=== PATIENT | female | born 1980 | race Caucasian/White ===

== ENCOUNTER 2023-09-07 18:06 | Emergency (ER) | payer OTHER ==
[~2023-09-07] VITALS: Ht 149.9 cm; Wt 58.1 kg
[2023-09-07 18:51] LABS: *BILIRUBIN,URIN NEGATIVE (NEGATIVE); *CLARITY,URINE CLEAR (CLEAR); *COLOR,URINE YELLOW (YELLOW); *KETONES,URINE NEGATIVE (NEGATIVE); *PROTEIN,URINE NEGATIVE (NEGATIVE); *UROBILINOGEN,URINE 0.2 E.U./dl (NORMAL); LEUKOCYTE ESTERASE ,URINE NEGATIVE (NEGATIVE); UGLUCOSE NEGATIVE (NEGATIVE)
[2023-09-07 18:52] LABS: *BLOOD, URINE NEGATIVE (NEGATIVE); NITRITE, URINE NEGATIVE (NEGATIVE)
[2023-09-07 18:55] LABS: *URINE HCG, QUAL NEGATIVE (NEGATIVE)
[2023-09-07 19:44] LABS: ALBUMIN 3.7 g/dL (3.4-5.0); BILIRUBIN,DIRECT 0.1 mg/dL (0.0-0.2); BILIRUBIN,TOTAL 0.1 mg/dL (0.2-1.0); CALCIUM 8.8 mg/dL (8.5-10.1); CREATININE 0.6 mg/dL (0.6-1.3)
[2023-09-07 19:46] LABS: BASOPHILS % (AUTO) 0.5 % (0.0-2.0); EOSINOPHILS # (AUTO) 0.1 K/uL (0.0-0.7); EOSINOPHILS % (AUTO) 2.4 % (0.0-7.0); HEMATOCRIT 40.1 % (31.2-41.9); HEMOGLOBIN 13.5 g/dL (10.9-14.3); LYMPHOCYTES # (AUTO) 2.1 K/uL (0.8-4.8); LYMPHOCYTES % (AUTO) 35.7 % (20.5-51.5); MEAN CORPUSCULAR HEMOGLOBIN 28.7 uug (24.7-32.8); MEAN CORPUSCULAR HGB CONC 34 g/dL (32.3-35.6); MEAN CORPUSCULAR VOLUME 85.1 fL (75.5-95.3); MONOCYTES # (AUTO) 0.4 K/uL (0.1-1.30); MONOCYTES % (AUTO) 6.1 % (0.0-11.0); NEUTROPHILS # (AUTO) 3.2 K/uL (1.8-8.9); NEUTROPHILS % (AUTO) 55.3 % (38.5-71.5); PLATELET COUNT (AUTO) 152 K/uL (179-408); RED BLOOD CELL COUNT(AUTO) 4.71 MIL/uL (3.63-4.92); RED CELL DISTRIBUTION WIDTH 13.2 % (12.3-17.7); WHITE BLOOD COUNT (AUTO) 5.8 K/uL (3.8-11.8)
[2023-09-07 19:48] LABS: DIFFERENTIAL COMMENT 1
[2023-09-07] MEDS ORDERED: LANS30CA54 PO (20:32)
[2023-09-07] MEDS ORDERED: MAG30ORA GT (20:32)
[2023-09-07 20:49] VITALS: BP 101/62; O2SAT 97
== END 2023-09-07 20:49 | disposition home or self-care (01) ==
LOC: ER 18:10
DX: R10.10 Upper abdominal pain, unspecified (principal); R07.89 Other chest pain; F17.210 Nicotine dependence, cigarettes, uncomplicated; Z79.899 Other long term (current) drug therapy
CPT/HCPCS: 36415; 71045; 76856; 83690; 84703; 85025; 93005; A4606; A4663

== ENCOUNTER 2024-05-13 15:50 | Emergency (ER) | payer OTHER ==
[~2024-05-13] VITALS: Ht 149.9 cm; Wt 56.7 kg
[~2024-05-13 15:50] MED LIST: MAG30ORA GT
[2024-05-13] MEDS ORDERED: FAMO40TA7 PO (17:04)
[2024-05-13] MEDS ORDERED: FLUT16SP16 BNOSTRILS (17:04)
[2024-05-13 17:15] VITALS: BP 101/65; O2SAT 98
== END 2024-05-13 17:16 | disposition home or self-care (01) ==
LOC: ER 15:53
DX: R05.8 Other specified cough (principal); F17.200 Nicotine dependence, unspecified, uncomplicated; Z79.899 Other long term (current) drug therapy
CPT/HCPCS: 71045; A4606; A4663

== ENCOUNTER 2024-07-03 13:54 | Emergency (ER) | payer OTHER ==
[~2024-07-03] VITALS: Ht 149.9 cm; Wt 56.7 kg
[~2024-07-03 13:54] MED LIST changes: +FAMO40TA7 PO; +FLUT16SP16 BNOSTRILS
[2024-07-03 15:32] VITALS: BP 98/51; O2SAT 96
== END 2024-07-03 15:31 | disposition home or self-care (01) ==
LOC: ER 13:55
DX: S50.01XA Contusion of right elbow, initial encounter (principal); F17.200 Nicotine dependence, unspecified, uncomplicated; Z79.899 Other long term (current) drug therapy; W18.39XA Other fall on same level, initial encounter; Y93.89 Activity, other specified; Y92.511 Restaurant or cafe as the place of occurrence of the external cause; Y99.8 Other external cause status
CPT/HCPCS: 73020; 73070; A4606; A4663

== ENCOUNTER 2024-07-26 12:36 | Emergency (ER) | payer OTHER ==
[~2024-07-26] VITALS: Ht 149.9 cm; Wt 56.7 kg
[2024-07-26 13:23] LABS: BASOPHILS # (AUTO) 0.1 K/UL (0.0-0.2); BASOPHILS % (AUTO) 0.8 % (0.0-2.0); EOSINOPHILS % (AUTO) 0.5 % (0.0-7.0); HEMATOCRIT 37.9 % (31.2-41.9); HEMOGLOBIN 12.5 g/dL (10.9-14.3); LYMPHOCYTES # (AUTO) 0.6 K/uL (0.8-4.8); LYMPHOCYTES % (AUTO) 10.4 % (20.5-51.5); MEAN CORPUSCULAR HEMOGLOBIN 28.1 uug (24.7-32.8); MEAN CORPUSCULAR HGB CONC 33 g/dL (32.3-35.6); MEAN CORPUSCULAR VOLUME 85.2 fL (75.5-95.3); MONOCYTES # (AUTO) 0.4 K/uL (0.1-1.30); MONOCYTES % (AUTO) 5.9 % (0.0-11.0); NEUTROPHILS # (AUTO) 5.1 K/uL (1.8-8.9); NEUTROPHILS % (AUTO) 82.4 % (38.5-71.5); PLATELET COUNT (AUTO) 128 K/uL (179-408); RED BLOOD CELL COUNT(AUTO) 4.45 MIL/uL (3.63-4.92); RED CELL DISTRIBUTION WIDTH 13.7 % (12.3-17.7); WHITE BLOOD COUNT (AUTO) 6.2 K/uL (3.8-11.8)
[2024-07-26 13:26] LABS: DIFFERENTIAL COMMENT 1
[2024-07-26 13:33] LABS: *BILIRUBIN,URIN NEGATIVE (NEGATIVE); *BLOOD, URINE 2+ (NEGATIVE); *CLARITY,URINE CLEAR (CLEAR); *COLOR,URINE YELLOW (YELLOW); *KETONES,URINE NEGATIVE (NEGATIVE); *PROTEIN,URINE TRACE (NEGATIVE); *UROBILINOGEN,URINE 0.2 E.U./dl (NORMAL); LEUKOCYTE ESTERASE ,URINE 2+ (NEGATIVE); NITRITE, URINE NEGATIVE (NEGATIVE); UGLUCOSE NEGATIVE (NEGATIVE)
[2024-07-26 13:35] LABS: BACTERIA,URINE MODERATE /HPF (NONE SEEN); RBC,URINE 20-50 /HPF (0-3); SQUAMOUS EPITHELIAL CELL,UR MODERATE /HPF (NONE SEEN); WBC,URINE 50-80 /HPF (0-3)
[2024-07-26 13:38] LABS: ALANINE AMINOTRANSFERASE 29 U/L (14-59); ALBUMIN 3.6 g/dL (3.4-5.0); ALKALINE PHOSPHATASE 38 U/L (50-136); ASPARTATE AMINOTRANSFERASE 12 U/L (15-37); BILIRUBIN,DIRECT 0.1 mg/dL (0.0-0.2); BILIRUBIN,TOTAL 0.5 mg/dL (0.2-1.0); CALCIUM 9.5 mg/dL (8.5-10.1); CARBON DIOXIDE 30 mmol/L (21-32); CHLORIDE 102 mmol/L (98-107); CREATININE 0.7 mg/dL (0.6-1.3); GLUCOSE 103 mg/dL (74-106); LIPASE 40 U/L (16-77); POTASSIUM 4.4 mmol/L (3.5-5.1); SODIUM SERUM 141 mmol/L (136-145); TOTAL PROTEIN, SERUM 7.4 g/dL (6.4-8.2); UREA NITROGEN, BLOOD 15 mg/dL (7-18)
[2024-07-26 13:49] LABS: PREGNANCY TEST SERUM QUAN < 1 miul/L (0-6)
[2024-07-26 13:58] LABS: LYMPHOCYTES % (MANUAL) 14 % (20-40); MONOCYTES % (MANUAL) 6 % (2-10); NEUTROPHILS % (MANUAL) 80 % (42-75); PLATELET ESTIMATE DECREASED
[2024-07-26] MEDS ORDERED: HYDROCODONE/APAP 5-325MG TABLET ONE (15:06)
[2024-07-26] MEDS: HYDROCODONE/APAP 5-325MG TABLET PO ONE (15:10)
[2024-07-26] MEDS ORDERED: ACETAMINOPHEN 500 MG TABLET ONE (15:11)
[2024-07-26] MEDS ORDERED: CEFD300C3 PO (15:11)
[2024-07-26] MEDS: CEFDINIR 300 MG CAPSULE PO ONE (15:12)
[2024-07-26] MEDS: ACETAMINOPHEN 500 MG TABLET PO ONE (15:12)
[2024-07-26 15:22] VITALS: BP 110/62; TEMP 97.8; O2SAT 98
== END 2024-07-26 15:23 | disposition home or self-care (01) ==
LOC: ER 12:36
DX: N12 Tubulo-interstitial nephritis, not specified as acute or chronic (principal); R10.2 Pelvic and perineal pain; F17.200 Nicotine dependence, unspecified, uncomplicated; Z79.899 Other long term (current) drug therapy
CPT/HCPCS: 36415; 70030-TC; 83690; 84484; 85025; A4606; A4663; A9150